=== PATIENT | female | born 1955 | race Caucasian/White ===

== ENCOUNTER → 2021-04-08 | Outpatient (CLI) | payer OTHER ==
[~2021-04-08] MED LIST: ANAPROX DS550 MG PO; BACTROBAN OINT22 GM PO; DOXYCYCLINE MO100 MG PO; PERCOCET 325 MG1 TA4 PO; PERCOCET 325 MG1 TA7 PO; SEPTRA DS 800 M1 TAB PO; TRAMADOL HCL50 MG PO; ZOVIRAX800 MG PO
== END | disposition home or self-care (01) ==
LOC: RAD 13:09
PROVIDERS: ATTEND Nurse Practitioner Family
DX: M19.042 Primary osteoarthritis, left hand (principal); M19.041 Primary osteoarthritis, right hand

== ENCOUNTER 2022-01-26 12:13 | Emergency (ER) | payer OTHER ==
[~2022-01-26] VITALS: Ht 170.1 cm; Wt 49.9 kg
[2022-01-26 12:37] LABS: BASO # 0.1 10*3/uL (0.0-0.1); BASO % 0.7 % (0.0-1.0); EOS # 0.1 10*3/uL (0.0-0.4); EOS % 0.5 % (1.0-4.0); HEMATOCRIT 42.5 % (37.0-47.0); LYMPH # 2.4 10*3/uL (1.3-4.4); LYMPH % 18.1 % (27.0-41.0); MEAN CELL VOLUME 97.9 fl (81.0-99.0); MEAN CORPUSCULAR HGB 32.3 pg (27.0-31.0); MEAN CORPUSCULAR HGB CONC 32.9 g/dl (33.0-37.0); MEAN PLATELET VOLUME 10.3 fl (9.6-12.3); MONO % 7.3 % (3.0-9.0); NEUT # 9.6 10*3/uL (2.3-7.9); PLATELET COUNT AUTOMATED 489 10*3/uL (130-400); RED BLOOD COUNT 4.34 10*6/uL (4.10-5.10); RED CELL DISTRI WIDTH 14.3 % (0-14.5); WHITE BLOOD COUNT 13.1 10*3/uL (4.8-10.8)
[2022-01-26 12:47] LABS: ACT PARTIAL THROMBO TIME 26.9 SECONDS (20.0-32.1); INTERNATIONAL NORM RATIO 0.9 (2.0-3.5)
[2022-01-26 12:53] LABS: CREATININE 1.35 mg/dL (0.55-1.02); POTASSIUM 4.9 mmol/L (3.5-5.1); TOTAL PROTEIN 8.8 gm/dL (6.4-8.2)
== END 2022-01-26 14:35 | disposition home or self-care (01) ==
LOC: ED 12:13
PROVIDERS: Emergency Medicine
DX: R00.2 Palpitations (principal); R79.9 Abnormal finding of blood chemistry, unspecified; Z88.0 Allergy status to penicillin

== ENCOUNTER 2022-10-29 13:33 | Emergency (ER) | payer OTHER ==
[~2022-10-29] VITALS: Ht 170.1 cm; Wt 52.2 kg
[2022-10-29] MEDS ORDERED: LISINOPRIL5 MG PO (13:49)
[2022-10-29] MEDS ORDERED: METHOTREXATE2.5 MG OU (14:06)
[2022-10-29] MEDS ORDERED: HYDROCODONE-AC1 EACH PO (14:30)
== END 2022-10-29 14:46 | disposition home or self-care (01) ==
LOC: ED 13:33
DX: S42.201A Unspecified fracture of upper end of right humerus, initial encounter for closed fracture (principal); Z87.891 Personal history of nicotine dependence; W10.9XXA Fall (on) (from) unspecified stairs and steps, initial encounter; Y93.89 Activity, other specified; Y92.89 Other specified places as the place of occurrence of the external cause; Y99.8 Other external cause status

== ENCOUNTER → 2022-12-19 | Outpatient (CLI) | payer MEDICARE ==
[~2022-12-19] MED LIST changes: +HYDROCODONE-AC1 EACH PO; +LISINOPRIL5 MG PO; +METHOTREXATE2.5 MG OU
== END | disposition home or self-care (01) ==
LOC: RAD 01:23
PROVIDERS: ATTEND Orthopaedic Surgery
DX: S42.201D Unspecified fracture of upper end of right humerus, subsequent encounter for fracture with routine healing (principal); X58.XXXD Exposure to other specified factors, subsequent encounter

== ENCOUNTER → 2022-12-20 | Outpatient (CLI) | payer MEDICARE | END | disposition home or self-care (01) | LOC: MAMMO 10:53 | PROVIDERS: ATTEND Internal Medicine | DX: Z12.31 Encounter for screening mammogram for malignant neoplasm of breast (principal); N64.9 Disorder of breast, unspecified ==

== ENCOUNTER → 2023-01-03 | Outpatient (CLI) | payer MEDICARE | END | disposition home or self-care (01) | LOC: US 01:27 | PROVIDERS: ATTEND Internal Medicine | DX: N63.32 Unspecified lump in axillary tail of the left breast (principal); N60.02 Solitary cyst of left breast; D17.9 Benign lipomatous neoplasm, unspecified ==

== ENCOUNTER → 2023-01-18 | Outpatient (CLI) | payer MEDICARE | END | disposition home or self-care (01) | LOC: RAD 01-04 13:30 | PROVIDERS: ATTEND Orthopaedic Surgery | DX: M81.0 Age-related osteoporosis without current pathological fracture (principal) ==

== ENCOUNTER → 2023-02-11 | Outpatient (CLI) | payer OTHER | END | disposition home or self-care (01) | LOC: LAB 14:41 | PROVIDERS: ATTEND Orthopaedic Surgery | DX: E55.9 Vitamin D deficiency, unspecified (principal) ==

== ENCOUNTER → 2023-03-19 | Outpatient (CLI) | payer OTHER | END | disposition home or self-care (01) | LOC: CT 14:00 | PROVIDERS: ATTEND Internal Medicine | DX: J98.4 Other disorders of lung (principal); J43.9 Emphysema, unspecified; I25.10 Atherosclerotic heart disease of native coronary artery without angina pectoris; F17.210 Nicotine dependence, cigarettes, uncomplicated ==